=== PATIENT | female | born 1950 | race Caucasian/White ===

== ENCOUNTER → 2019-08-21 | Outpatient (CLI) | payer MEDICARE, OTHER ==
[~2019-08-21] MED LIST: PRX20T
--- NOTE | 2019-08-22 13:07 | Diagnostic Imaging Report ---
INDICATION: Routine screening. COMPARISON: 02/03/2012 and 05/17/2009. TECHNIQUE: 2D and 3D bilateral screening mammography was performed with CAD. FINDINGS: Scattered fibroglandular densities are identified bilaterally. There are scattered benign calcifications. No dominant mass or malignant appearing microcalcifications are seen. The axillae are unremarkable. IMPRESSION: No mammographic features suspicious for malignancy are identified. ACR BI-RADS Category 2: Benign findings. Result letter will be mailed to the patient. Note: At least 10% of breast cancer is not imaged by mammography. Dictated by: Dictated on workstation # [id number]
== END ==
LOC: RAD 11:12
PROVIDERS: ATTEND Family Medicine
DX: Z12.31 Encounter for screening mammogram for malignant neoplasm of breast (principal)
CPT/HCPCS: 77067

== ENCOUNTER 2022-11-10 09:15 | Outpatient (RCR) | payer MEDICARE, OTHER | END 2022-11-13 | disposition home or self-care (01) | PROVIDERS: ATTEND Family Medicine | DX: M25.511 Pain in right shoulder (principal); M25.561 Pain in right knee; R26.89 Other abnormalities of gait and mobility ==

== ENCOUNTER 2022-11-30 11:19 | Outpatient (RCR) | payer MEDICARE, OTHER | END 2022-12-13 | disposition home or self-care (01) | PROVIDERS: ATTEND Family Medicine | DX: M25.561 Pain in right knee (principal); M25.511 Pain in right shoulder; G89.29 Other chronic pain ==